=== PATIENT | male | born 1970 | race Caucasian/White ===

== ENCOUNTER → 2019-10-05 12:32 | Outpatient (CLI) | payer BC, SELFPAY ==
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
--- NOTE | 2019-10-05 12:39 | CDU_ITS ---
Reason For Study: amarousis fugax Rt. Velocities/BP Lt. Velocities/BP Prox CCA 109.9/33.0 cm/sec. Prox CCA 100.8/34.3 cm/sec. Mid CCA 94.3/31.7 cm/sec. Mid CCA 104.7/36.9 cm/sec. Dist CCA 81.2/26.5 cm/sec. Dist CCA 96.9/35.6 cm/sec. Prox ICA 77.3/27.8 cm/sec. Prox ICA 98.2/39.5 cm/sec. Mid ICA 86.5/34.3 cm/sec. Mid ICA 85.2/39.5 cm/sec. Dist ICA 90.4/42.1 cm/sec. Dist ICA 89.1/39.5 cm/sec. Rt. ICA/CCA = 1.0. Prox ECA 99.5/16.0 cm/sec. Prox ECA 102.1/23.9 cm/sec. Lt. Vert. 48.6/17.3 cm/sec. Rt. Vert. 44.7/10.8 cm/sec. Right Extracranial There is intimal thickening but no significant atherosclerotic plaque noted in the right common carotid artery. There is intimal thickening but no significant atherosclerotic plaque noted in the right internal carotid artery. There is intimal thickening but no significant atherosclerotic plaque noted in the right external carotid artery. Antegrade flow is noted in the right vertebral artery. Left Extracranial There is homogeneous, smooth atherosclerotic plaque noted in the left common carotid artery. There is heterogeneous, irregular atherosclerotic plaque noted in the left internal carotid artery. There is intimal thickening but no significant atherosclerotic plaque noted in the left external carotid artery. Antegrade flow is noted in the left vertebral artery. Procedure Carotid Duplex [id number]. The exam was diagnostic. Exam performed in department. Interpretation Summary No significant atherosclerotic plaque or stenosis noted in the right internal carotid artery. Mild (<50%) stenosis left extracranial internal carotid. Flow within the vertebral arteries is antegrade bilaterally. Ordering Physician: Chriss Gomez Performed By: Santino Jay RVT
== END ==
PROVIDERS: PCP Nurse Practitioner; Referring Provider Ophthalmology; Visit Provider Ophthalmology
DX: G45.3 Amaurosis fugax (principal); R42 Dizziness and giddiness
CPT/HCPCS: 70450; 93306; 93880; A4216

== ENCOUNTER → 2019-10-19 15:45 | Outpatient (CLI) | payer BC, SELFPAY ==
--- NOTE | 2019-10-19 15:53 | MRI_ITS ---
STUDY: MRI BRAIN WITH AND WITHOUT CONTRAST REASON FOR EXAM: Male, 48 years old. headaches do to old head injury, dizziness, TECHNIQUE: Standardized multiplanar fat and water weighted pulse sequences were obtained. dotarem 15ml was administered for the contrast portion of the examination. COMPARISON: CT brain 10/05/2019 FINDINGS: There is mild cerebral atrophy with widening of the extra-axial spaces and ventricular dilatation. Normal white matter tracts of the supratentorial brain. Left frontal encephalomalacia. Normal bilateral basal ganglia. Normal thalami. There is no extra-axial fluid accumulation. Normal flow voids within the major intracranial circulation suggesting patency by spin echo criteria. Normal venous enhancement. There is no enhancing intra-axial or extra-axial abnormality. Normal sella turcica, pituitary gland, infundibular stalk, optic chiasm and hypothalamus. Normal tectal plate and pineal gland. Normal midbrain, carmen and medulla. Normal cerebellum. Normal basal cisterns. Normal bilateral temporal bones. Normal bilateral internal auditory canals. No demonstrated orbital abnormality, within the constraints of a routine brain study. Normal visualized paranasal sinuses. Normal calvarium and skull base. Normal visualized soft tissue structures. Normal visualized upper cervical spine. Frontal subcutaneous lipoma. MRI/Brain W/WO Contrast IMPRESSION: Left frontal encephalomalacia. No acute disease. Electronically Signed: Reginaldo Dominguez MD at 22:22 EDT , Service support ,
== END ==
PROVIDERS: PCP Nurse Practitioner; Referring Provider Nurse Practitioner; Visit Provider Nurse Practitioner
DX: G44.309 Post-traumatic headache, unspecified, not intractable (principal); R42 Dizziness and giddiness
CPT/HCPCS: 70553; A9575

== ENCOUNTER 2019-10-21 17:30 | Outpatient (RCR) | payer BC, SELFPAY ==
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
--- NOTE | 2019-10-21 17:43 | HP.PTDCSUM ---
It has been my pleasure to treat ADITYA BURGESS referred by Janessa Butler, CHET, with the diagnosis of dizzyness for a total of 2 visit(s). Discharge Date: 10/21/19 Please see the following information for a summary of their discharge status. Subjective: make him dizzy anymore. Much better. Only has a slight dizzy spell climbing on top of trailer for a second adn needs to let it pass. Thsi is strenuous. Doing ex 1x/day 8 reps. No problem with balance. % Improvement: 90 Objective/Function: - roll test, - R HD, Very slight quick dizzy with L hallpike and treated wth Letty again. Walking is good. Oculomotor is unremarkable with no nystagmus with gaze or head shake, normal pursuit adn saccades adn VOR. - head thrust, -skew eye deviation, - ocular tilt. Goal 1:: Abolish dizzyness Goal Progress: 90% Goal 2:: FGA Goal Progress: Goal Met Goal 3:: perfect DHI Goal Progress: Progressing Plan: d/c pt request If there are questions or concerns regarding this patient's physical therapy, please feel free to call me at [phone]. Thank you for the referral of this patient. Sincerely, Esvin Salazar, DPT, OCS, CSCS
== END 2019-10-21 19:00 | disposition home or self-care (01) ==
LOC: PT 17:30
PROVIDERS: PCP Nurse Practitioner; Referring Provider Nurse Practitioner; Visit Provider Nurse Practitioner
DX: R42 Dizziness and giddiness (principal)
CPT/HCPCS: 97161; 97530